=== PATIENT | female | born 1960 | race Caucasian/White ===

== ENCOUNTER 2020-02-02 11:00 | Outpatient (RCR) | payer MEDICAID, SELFPAY | END 2020-02-21 15:03 | disposition home or self-care (01) | LOC: PT.CARL 11:00 | PROVIDERS: Visit Provider Nurse Practitioner | DX: M25.511 Pain in right shoulder; M25.551 Pain in right hip | CPT/HCPCS: 97014; 97110; 97163; G0283 ==

== ENCOUNTER 2020-08-07 16:00 | Outpatient (RCR) | payer MEDICAID, SELFPAY | END 2020-08-21 16:10 | disposition home or self-care (01) | LOC: PT.CARL 16:00 | PROVIDERS: PCP Nurse Practitioner Family; Visit Provider Orthopaedic Surgery Adult Reconstructive Orthopaedic Surgery | DX: M25.511 Pain in right shoulder (principal) | CPT/HCPCS: 97010; 97014; 97110; 97140; 97163; G0283 ==

== ENCOUNTER → 2020-08-21 17:41 | Outpatient (CLI) | payer MEDICAID, SELFPAY ==
[2020-08-21 19:20] LABS: Coronavirus 19 IgG Antibody Negative (Negative); Coronavirus 19 IgM Antibody Negative (Negative)
== END ==
PROVIDERS: PCP Nurse Practitioner; Visit Provider Nurse Practitioner
DX: Z01.812 Encounter for preprocedural laboratory examination (principal); Z11.52 Encounter for screening for COVID-19; G47.30 Sleep apnea, unspecified; R40.0 Somnolence; R06.83 Snoring
CPT/HCPCS: 36415; 86328; 95810

== ENCOUNTER 2020-12-10 13:00 | Outpatient (RCR) | payer MEDICAID, SELFPAY | END 2021-01-15 08:10 | disposition home or self-care (01) | LOC: OT 13:00 | PROVIDERS: PCP Nurse Practitioner; Visit Provider Orthopaedic Surgery Adult Reconstructive Orthopaedic Surgery | DX: M75.121 Complete rotator cuff tear or rupture of right shoulder, not specified as traumatic (principal) | CPT/HCPCS: 97010; 97014; 97110; 97140; 97164; 97165; 97530; G0283 ==